=== PATIENT | female | born 1985 | race Hispanic/Latino ===

== ENCOUNTER 2020-01-22 01:01 | Emergency (ER) | payer OTHER ==
[2020-01-22] MEDS ORDERED: SODIUM CHLORIDE 0.9% 1000 ML 1,000 ML IV ONE (01:44)
[2020-01-22] MEDS ORDERED: ONDANSETRON 4 MG/2 ML INJ IV ONE (01:44)
[2020-01-22] MEDS ORDERED: ONDANSETRON 4 MG/2 ML INJ ONE (01:45)
[2020-01-22] MEDS ORDERED: SODIUM CHLORIDE 0.9% 1000 ML 1,000 ML ONE (01:45)
--- NOTE | 2020-01-22 01:45 | Emergency Department Report ---
ED General Adult HPI - General Chief complaint: Arrhythmia/Palpitations Stated complaint: HEART RATE HIGH PUI?: No Time Seen by Provider: 01/22/20 01:31 Source: patient Mode of arrival: Ambulatory Limitations: No Limitations - History of Present Illness Initial comments: Patient is a 34-year-old female that presents emergency room with complaints palpitations, chest pain, numbness and tingling in her hands and feet. Patient states her symptoms started 1 hour ago. Patient states her symptoms are worsening. Patient states her symptoms are better with rest and worse with exertion. Patient also complains of nausea. Patient denies vomiting. Patient complains of epigastric pain. Patient states she has gastritis and she is taking omeprazole daily. -: Sudden Location: abdomen Severity scale (0 -10): 3 Quality: burning Consistency: constant Improves with: rest Worsens with: movement Associated Symptoms: chest pain, shortness of breath. denies: confusion, cough, diaphoresis, fever/chills, headaches, loss of appetite, malaise, rash, seizure, syncope, weakness - Related Data Previous Rx's Medication Instructions Recorded Last Taken Type Esomeprazole Magnesium [NexIUM] 40 mg PO QDAY 30 Days #30 01/22/20 Unknown Rx capsule. Allergies Allergy/AdvReac Type Severity Reaction Status Date / Time No Known Allergies Allergy Unverified 01/22/20 01:29 ED Review of Systems ROS: Stated complaint: HEART RATE HIGH Other details as noted in HPI Constitutional: denies: chills, fever Eyes: denies: eye pain, eye discharge, vision change ENT: denies: ear pain, throat pain Respiratory: shortness of breath. denies: cough, wheezing Cardiovascular: chest pain, palpitations Endocrine: no symptoms reported Gastrointestinal: abdominal pain, nausea. denies: diarrhea Genitourinary: denies: urgency, dysuria, discharge Musculoskeletal: denies: back pain, joint swelling, arthralgia Skin: denies: rash, lesions Neurological: as per HPI. denies: headache, weakness Psychiatric: denies: anxiety, depression Hematological/Lymphatic: denies: easy bleeding, easy bruising ED Past Medical Hx - Past Medical History Previous Medical History?: Yes Hx GERD: Yes - Surgical History Past Surgical History?: No - Family History Family history: no significant - Social History Smoking Status: Never Smoker Substance Use Type: None - Medications Home Medications: Home Medications Medication Instructions Recorded Confirmed Last Taken Type Esomeprazole Magnesium [NexIUM] 40 mg PO QDAY 30 Days #30 01/22/20 Unknown Rx capsule. ED Physical Exam - General Limitations: No Limitations General appearance: alert, in distress - Head Head exam: Present: atraumatic, normocephalic - Eye Eye exam: Present: normal appearance - ENT ENT exam: Present: mucous membranes moist - Neck Neck exam: Present: normal inspection - Respiratory Respiratory exam: Present: normal lung sounds bilaterally, respiratory distress, chest wall tenderness. Absent: wheezes - Cardiovascular Cardiovascular Exam: Present: regular rate, normal rhythm. Absent: systolic murmur, diastolic murmur, rubs, gallop - GI/Abdominal GI/Abdominal exam: Present: soft, tenderness (Epigastric tenderness), normal bowel sounds. Absent: distended, guarding, rebound - Rectal Rectal exam: Present: deferred - Extremities Exam Extremities exam: Present: normal inspection, full ROM, normal capillary refill. Absent: tenderness, pedal edema, calf tenderness - Back Exam Back exam: Present: normal inspection, full ROM. Absent: tenderness, CVA tenderness (R), CVA tenderness (L) - Neurological Exam Neurological exam: Present: alert, oriented X3, CN II-XII intact, normal gait. Absent: abnormal gait, motor sensory deficit - Psychiatric Psychiatric exam: Present: normal affect, normal mood - Skin Skin exam: Present: warm, dry, intact, normal color. Absent: rash ED Course Vital Signs 01/22/20 01/22/20 01/22/20 02:00 02:16 02:30 Temperature 98.1 F Pulse Rate 115 H 118 H 98 H Respiratory 26 H 22 14 Rate Blood Pressure 110/73 117/68 122/71 Blood Pressure 110/65 [Left] O2 Sat by Pulse 100 100 100 Oximetry 01/22/20 01/22/20 01/22/20 02:46 03:00 03:16 Temperature Pulse Rate 105 H 109 H 94 H Respiratory 13 17 12 Rate Blood Pressure 122/71 104/68 122/71 Blood Pressure [Left] O2 Sat by Pulse 100 97 99 Oximetry 01/22/20 04:00 Temperature Pulse Rate 97 H Respiratory 12 Rate Blood Pressure 112/60 Blood Pressure [Left] O2 Sat by Pulse 99 Oximetry - Reevaluation(s) Reevaluation #1: Initial evaluation done. I connected the patient to the museum registrar. Patient's heart rate initially 110 and decreased to 96. Patient will be given saline and Zofran for nausea. 01/22/20 01:45 Reevaluation #2: Patient complaining of chest pain. Patient will be given 1 mg of morphine. 01/22/20 02:15 Reevaluation #3: Patient complaining of anxiety. Patient will be given 1 mg of Ativan. 01/22/20 02:33 Reevaluation #4: Patient states she feels much better. Patient's heart rate is controlled. Patient still on the museum registrar. Patient denies chest pain or shortness of breath. Patient's anxiety and pain has resolved. Patient says all of her symptoms have resolved. Patient states she feels much better. 01/22/20 03:01 Reevaluation #5: Patient states she is feeling much better. Patient resting without distress or difficulty. Patient denies symptoms. Patient denies chest pain. Patient denies shortness of breath. Patient states she is ready to go home. I discussed all results and clinical findings with patient. I discussed plan of care with patient. Patient agrees with plan of care. Patient is stable for discharge. Patient will be discharged home. Patient given discharge instructions. Patient voiced understanding of discharge instructions. 01/22/20 04:21 ED Medical Decision Making - Lab Data Result diagrams: 01/22/20 01:41 01/22/20 01:41 - EKG Data -: EKG Interpreted by Me EKG shows normal: sinus rhythm, axis, intervals, QRS complexes, ST-T waves Rate: tachycardia - Radiology Data Radiology results: report reviewed, image reviewed interpreted by me: Chest x-ray: No pneumonia, no pneumothorax, no osseous findings, no foreign body. CHEST 1 VIEW INDICATION: sob COMPARISON: None FINDINGS: SUPPORT DEVICES: None. HEART / MEDIASTINUM: No significant abnormality. LUNGS / PLEURA: No significant pulmonary or pleural abnormality. No pneumothorax. ADDITIONAL FINDINGS: IMPRESSION: 1. No acute cardiopulmonary disease - Medical Decision Making Patient is a 34-year-old female that presents emergency room with complaints chest pain, shortness of breath, difficulty breathing, nausea, epigastric pain. Patient given fluids, patient given morphine and Ativan. Patient symptoms apparently resolved after the Ativan. Patient clinical findings are consistent with a panic attack. Patient's EKG shows a sinus tachycardia. Patient chest x-ray is negative for acute findings. Patient's labs are unremarkable. - Differential Diagnosis Chest pain, shortness of breath, anxiety, costochondritis, Critical Care Time: Yes Critical care time in (mins) excluding proc time.: 35 Critical care attestation.: If time is entered above; I have spent that time in minutes in the direct care of this critically ill patient, excluding procedure time. Critical Care Time: 35 MINUTES ED Disposition Clinical Impression: SOB (shortness of breath), Panic attack, Tachycardia, Palpitations, Costochondritis, acute, Epigastric abdominal pain, GERD with esophagitis Chest pain Qualifiers: Chest pain type: unspecified Qualified Code(s): R07.9 - Chest pain, unspecified Disposition: TO HOME OR SELFCARE Is pt being admited?: No Does the pt Need Aspirin: No Condition: Stable Instructions: Chest Pain (ED), Costochondritis (ED), Generalized Anxiety Disorder (ED), Anxiety (ED), Diet for Ulcers and Gastritis (ED), Gastroesophageal Reflux Disease (ED) Additional Instructions: Patient to follow-up with primary care in 2 to 3 days. Patient to follow-up wit h psychiatry in 2 to 3 days. Patient to follow-up with cardiology in 2 to 3 days. Patient to rest. Patient to increase water. Patient to avoid strenuous exercise or heavy lifting until cleared by cardiology. Patient to take Tylenol as needed for pain. Patient to return to the ER if condition worsens, changes or new symptoms arise. Prescriptions: Esomeprazole Magnesium [NexIUM] 40 mg PO QDAY 30 Days #30 capsule. Referrals: [facility] MD AVERY [Primary Care Provider] - 2-3 Days BENNIE WORLEY MD [Staff Physician] - 2-3 Days Time of Disposition: 03:41
[2020-01-22 01:53] LABS: Basophils # (Auto) 0.1 K/mm3 (0.0-0.1); Basophils % (Auto) 0.6 % (0.0-1.8); Eosinophils # (Auto) 0.1 K/mm3 (0.0-0.4); Eosinophils % (Auto) 0.5 % (0.0-4.3); Hematocrit 40.8 % (30.3-42.9); Lymphocytes # (Auto) 4.3 K/mm3 (1.2-5.4); Lymphocytes % (Auto) 25.8 % (13.4-35.0); Mean Corpuscular HGB Conc 34 % (30-34); Mean Corpuscular Volume 91 fl (79-97); Monocytes % (Auto) 6.1 % (0.0-7.3); Platelet Count 319 K/mm3 (140-440); Red Blood Count 4.51 M/mm3 (3.65-5.03); Red Cell Distribution Width 14.1 % (13.2-15.2)
[2020-01-22] MEDS ORDERED: MORPHINE 2 MG/1 ML INJ ONE (02:10)
[2020-01-22 02:15] LABS: Alanine Aminotransferase 16 units/L (7-56); Albumin 4.6 g/dL (3.9-5); BUN/Creatinine Ratio 17; Blood Urea Nitrogen 15 mg/dL (7-17); Calcium 9.7 mg/dL (8.4-10.2); Hemolysis Index 6
[2020-01-22] MEDS ORDERED: MORPHINE 2 MG/1 ML INJ IV ONE (02:15)
[2020-01-22] MEDS ORDERED: LORazepam 2 MG/ML VIAL ONE (02:24)
[2020-01-22] MEDS ORDERED: LORazepam 2 MG/ML VIAL IV ONE (02:32)
--- NOTE | 2020-01-22 03:31 | XRay Report ---
CHEST 1 VIEW INDICATION: sob COMPARISON: None FINDINGS: SUPPORT DEVICES: None. HEART / MEDIASTINUM: No significant abnormality. LUNGS / PLEURA: No significant pulmonary or pleural abnormality. No pneumothorax. ADDITIONAL FINDINGS: IMPRESSION: 1. No acute cardiopulmonary disease Signer Name: Tom Harper MD Signed: 01/22/2020 3:27 AM Workstation Name: [id number]
[2020-01-22 03:41] LABS: Bilirubin,Urine NEG (Negative); Blood,Urine NEG (Negative); Color,Urine Colorless (Yellow); Protein,Urine <15 mg/dL mg/dL (Negative); Urobilinogen,Urine < 2.0 mg/dL (<2.0)
[2020-01-22 03:49] LABS: Amphetamine Screen,Urine PRESUMPTIVE NEGATIVE; Benzodiazepines Screen,Urine PRESUMPTIVE NEGATIVE; Cannabinoid Screen,Urine PRESUMPTIVE NEGATIVE; Cocaine Screen,Urine PRESUMPTIVE NEGATIVE; Methadone Screen,Urine PRESUMPTIVE NEGATIVE; Opiate Screen,Urine PRESUMPTIVE NEGATIVE
[2020-01-22 04:17] VITALS: BP 112/60
== END 2020-01-22 04:35 | disposition home or self-care (01) ==
LOC: ED 01:01
DX: M94.0 Chondrocostal junction syndrome [Tietze] (principal); F41.0 Panic disorder [episodic paroxysmal anxiety]; K21.9 Gastro-esophageal reflux disease without esophagitis; R06.02 Shortness of breath; R00.2 Palpitations; R07.9 Chest pain, unspecified; R00.0 Tachycardia, unspecified; R10.13 Epigastric pain; Z79.899 Other long term (current) drug therapy
CPT/HCPCS: 36415; 71045; 80053; 80307; 81001; 84703; 85025; 93005; 96361; 96374; 96375; 99284; J2060; J2270; J2405; J7030

== ENCOUNTER 2020-01-28 01:37 | Emergency (ER) | payer OTHER ==
[2020-01-28] MEDS ORDERED: ASPIRIN 325 MG TAB PO ONE (02:07)
[2020-01-28 02:35] LABS: Basophils # (Auto) 0.1 K/mm3 (0.0-0.1); Basophils % (Auto) 0.5 % (0.0-1.8); Eosinophils # (Auto) 0.1 K/mm3 (0.0-0.4); Eosinophils % (Auto) 0.6 % (0.0-4.3); Hematocrit 42.2 % (30.3-42.9); Hemoglobin 14.1 gm/dl (10.1-14.3); Lymphocytes # (Auto) 2.9 K/mm3 (1.2-5.4); Lymphocytes % (Auto) 15.8 % (13.4-35.0); Mean Corpuscular HGB Conc 34 % (30-34); Mean Corpuscular Volume 90 fl (79-97); Monocytes # (Auto) 0.8 K/mm3 (0.0-0.8); Monocytes % (Auto) 4.2 % (0.0-7.3); Platelet Count 314 K/mm3 (140-440); Red Blood Count 4.68 M/mm3 (3.65-5.03)
[2020-01-28 03:23] LABS: BUN/Creatinine Ratio 13; Blood Urea Nitrogen 12 mg/dL (7-17); Calcium 9.7 mg/dL (8.4-10.2); Hemolysis Index 37
--- NOTE | 2020-01-28 03:45 | XRay Report ---
CHEST 1 VIEW INDICATION: Chest Pain. COMPARISON: 01/22/2020. FINDINGS: Support devices: None. Heart: Within normal limits. Lungs/Pleura: No acute air space or interstitial disease. Additional findings: None. IMPRESSION: No acute abnormality. Signer Name: Mo May MD Signed: 01/28/2020 3:41 AM Workstation Name: [id number]
[2020-01-28] MEDS ORDERED: MORPHINE 4 MG/1 ML INJ IV ONE (04:05)
[2020-01-28] MEDS ORDERED: SODIUM CHLORIDE 0.9% 1000 ML 1,000 ML IV ONE (04:05)
[2020-01-28] MEDS ORDERED: ONDANSETRON 4 MG/2 ML INJ IV ONE (04:05)
--- NOTE | 2020-01-28 04:08 | Emergency Department Report ---
ED Chest Pain HPI - General Chief Complaint: Chest Pain Stated Complaint: CHEST PAIN, AND VOMITING Time Seen by Provider: 01/28/20 02:59 Source: patient Mode of arrival: Ambulatory Limitations: No Limitations - History of Present Illness Initial Comments: This is a 35-year-old female presents to the emergency department with complaint of midsternal chest pain, tachycardia, palpitations, nausea and vomiting that is been going on for the past 5 days. The patient was seen here on 01/22/2020 when the symptoms first began. She had a negative work-up in the emergency department and was diagnosed with having some anxiety and/or a panic attack. Over the past 2 nights the patient has had multiple different episodes in which she has the previously mentioned symptoms. She just recently saw a licensed marine engineer and is being set up for a 48-hour Holter monitor. She does not have a primary care physician. She has a past medical history of GERD, gastritis and gastric ulcers. She has not taken anything for symptoms prior to presentation this evening. She denies any tobacco or illicit drug use. No recent travel or sick contacts at home. Currently her chest pain is a 5 out of 10 in intensity. There are no known aggravating or alleviating factors. Severity scale (0 -10): 4 - Related Data Previous Rx's Medication Instructions Recorded Last Taken Type Esomeprazole Magnesium [NexIUM] 40 mg PO QDAY 30 Days #30 01/22/20 Unknown Rx capsule. Ondansetron [Zofran Odt] 4 mg PO Q8HR PRN #15 tab.rapdis 01/28/20 Unknown Rx Allergies Allergy/AdvReac Type Severity Reaction Status Date / Time No Known Allergies Allergy Unverified 01/22/20 01:29 Heart Score - HEART Score History: Slightly suspicious EKG: Normal Age: < 45 Risk factors: No known risk factors Troponin: < normal limit HEART Score: 0 - Critical Actions Critical Actions: 0-3 pts:0.9-1.7%risk of adverse cardiac event.Candidate for discharge ED Review of Systems ROS: Stated complaint: CHEST PAIN, AND VOMITING Other details as noted in HPI Comment: All other systems reviewed and negative Constitutional: denies: chills, fever Eyes: denies: eye pain, vision change ENT: denies: ear pain, throat pain Respiratory: denies: cough, shortness of breath Cardiovascular: chest pain, palpitations. denies: edema Gastrointestinal: abdominal pain, nausea, vomiting Genitourinary: denies: dysuria, discharge Musculoskeletal: denies: back pain, arthralgia Skin: denies: rash, lesions Neurological: denies: headache, weakness ED Past Medical Hx - Past Medical History Previous Medical History?: Yes Hx GERD: Yes Additional medical history: PUD, Hiatal Hernia - Surgical History Past Surgical History?: No - Social History Smoking Status: Never Smoker Substance Use Type: None - Medications Home Medications: Home Medications Medication Instructions Recorded Confirmed Last Taken Type Esomeprazole Magnesium [NexIUM] 40 mg PO QDAY 30 Days #30 01/22/20 Unknown Rx capsule. Ondansetron [Zofran Odt] 4 mg PO Q8HR PRN #15 tab.rapdis 01/28/20 Unknown Rx ED Physical Exam - General Limitations: No Limitations - Other Other exam information: GENERAL: The patient is well-developed well-nourished. HENT: Normocephalic. Atraumatic. Patient has moist mucous membranes. EYES: Extraocular motions are intact. NECK: Supple. Trachea is midline. CHEST/LUNGS: Clear to auscultation. There is no respiratory distress noted. HEART/CARDIOVASCULAR: Regular. There is mild tachycardia. No murmur. ABDOMEN: Abdomen is soft, nontender. Patient has normal bowel sounds. SKIN: Skin is warm and dry. NEURO: The patient is awake, alert, and oriented. The patient is cooperative. Normal speech. Cranial nerves II through XII grossly intact. No focal, motor o r sensory deficits. MUSCULOSKELETAL: There is no tenderness or deformity. ED Course Vital Signs 01/28/20 01/28/20 01/28/20 02:02 02:42 02:45 Temperature 98.2 F Pulse Rate 117 H 110 H Respiratory 18 16 Rate Blood Pressure 129/79 130/78 135/69 O2 Sat by Pulse 99 100 Oximetry 01/28/20 01/28/20 01/28/20 03:00 03:15 03:30 Temperature Pulse Rate 81 82 98 H Respiratory 10 L 13 17 Rate Blood Pressure 112/71 117/73 110/78 O2 Sat by Pulse 98 97 98 Oximetry 01/28/20 01/28/20 01/28/20 03:45 04:00 04:15 Temperature Pulse Rate 79 85 93 H Respiratory 14 13 15 Rate Blood Pressure 131/69 131/69 119/72 O2 Sat by Pulse 98 98 99 Oximetry MAKSIM score - Maksim Score Age > 65: (0) No Aspirin use within the Past 7 Days: (0) No 3 or more CAD Risk Factors: (0) No 2 or more Angina events in past 24 hrs: (1) Yes Known CAD with more than 50% Stenosis: (0) No Elevated Cardiac Markers: (0) No ST Deviation Greater than 0.5mm: (0) No MAKSIM Score: 1 ED Medical Decision Making - Lab Data Result diagrams: 01/28/20 02:10 01/28/20 02:10 - EKG Data -: EKG Interpreted by Me EKG shows normal: sinus rhythm, axis, intervals, QRS complexes, ST-T waves Rate: normal - EKG Data When compared to previous EKG there are: no significant change Interpretation: normal EKG, unchanged when compared t (01/22/20) - Radiology Data Radiology results: image reviewed interpreted by me: Chest x-ray does not show any acute process. There are no pleural effusions, obvious pneumonia and there is no pneumothorax. No significant cardiomegaly. - Medical Decision Making Patient presents with a complaint of chest pain, palpitations, tachycardia, nausea and vomiting, that has been going on for the past 5 to 6 days. EKG is normal without morphology consistent with ST elevation [place] or any dysrhythmia. Chest x-ray does not show any pneumonia, pleural effusions, pneumothorax, focal consolidation, or any other acute process. Patient's labs have been un remarkable including CBC, metabolic panel, TSH, negative d-dimer, and negative troponins x2. Patient's vital signs have been reassuring throughout her ED course. There was maybe some mild tachycardia upon arrival to the emergency department but that has since resolved. She is low on the heart and MAKSIM scores. She was reevaluated multiple times over multiple hours and is feeling improved. She will be discharged home to follow-up with her licensed marine engineer for the Holter monitor. She has been given multiple referrals for primary care physicians. I believe that her symptoms are at least somewhat contributable to anxiety. She also has a history of GERD and PUD. She may need to see a psychiatrist and life science teacher in the near future. She has been instructed to return to the emergency department with any worsening of her symptoms or with any acute distress. Critical Care Time: No Critical care attestation.: If time is entered above; I have spent that time in minutes in the direct care of this critically ill patient, excluding procedure time. ED Disposition Clinical Impression: Palpitations Chest pain Qualifiers: Chest pain type: unspecified Qualified Code(s): R07.9 - Chest pain, unspecified Nausea & vomiting Qualifiers: Vomiting type: unspecified Vomiting Intractability: non-intractable Qualified Code(s): R11.2 - Nausea with vomiting, unspecified Disposition: DC- TO HOME OR SELFCARE Is pt being admited?: No Condition: Stable Instructions: Chest Pain (ED), Palpitations (ED), Anxiety (ED) Additional Instructions: Please continue with your Holter monitor and cardiology follow-up as previously scheduled. I have given you multiple referrals for local primary care physi cians. Please try to avoid any caffeinated products. Return to the emergency department with any worsening of your symptoms or with any acute distress. Prescriptions: Ondansetron [Zofran Odt] 4 mg PO Q8HR PRN #15 tab.rapdis PRN Reason: Nausea Referrals: PRIMARY CARE, [Primary Care Provider] - 2-3 Days ANGELA MICHELLE MD [Staff Physician] - 2-3 Days MITCH RUTH MD [Staff Physician] - 2-3 Days HATTIE RIVERA JR, MD [Staff Physician] - 2-3 Days Time of Disposition: 05:06
[2020-01-28 05:59] VITALS: BP 113/68
== END 2020-01-28 06:02 | disposition home or self-care (01) ==
LOC: ED 01:37
DX: R07.9 Chest pain, unspecified (principal); R00.2 Palpitations; R11.2 Nausea with vomiting, unspecified; K21.9 Gastro-esophageal reflux disease without esophagitis; Z79.899 Other long term (current) drug therapy
CPT/HCPCS: 36415; 71045; 80048; 84443; 84484; 84703; 85025; 85379; 93005; 96361; 96374; 96375; 99284; J2270; J2405; J7030

== ENCOUNTER 2021-04-19 00:02 | Emergency (ER) | payer OTHER ==
[2021-04-19 00:28] VITALS: BP 124/57
[2021-04-19 01:10] LABS: Bilirubin,Urine NEG (Negative); Blood,Urine SM (Negative); Color,Urine Yellow (Yellow); Mucus,Urine FEW /HPF; Protein,Urine <15 mg/dL mg/dL (Negative); Urobilinogen,Urine < 2.0 mg/dL (<2.0)
== END 2021-04-19 03:17 | disposition left against medical advice (07) ==
LOC: ED 00:02
DX: A05.9 Bacterial foodborne intoxication, unspecified (principal); Z53.21 Procedure and treatment not carried out due to patient leaving prior to being seen by health care provider
CPT/HCPCS: 81001; 99283